=== PATIENT | male | born 1940 | race Caucasian/White ===

== ENCOUNTER → 2018-06-12 | Outpatient (CLI) | payer MEDICARE, BC ==
--- NOTE | 2018-06-12 12:36 | PCVCIMAG ---
EXAM: BILATERAL LOWER EXTREMITY ARTERIAL DUPLEX INDICATION: Peripheral Arterial Disease. Leg pain. Right foot ulcer laterally. FINDINGS: Right Leg: Satisfactory arterial waveforms throughout the common/profunda/superficial femoral, popliteal, anterior tibial, peroneal, and posterior tibial arteries. No flow limiting stenosis seen. Left Leg: Common femoral and profunda femoral arteries are patent. Superficial femoral and popliteal artery are patent. Occlusion throughout the peroneal artery and posterior tibial artery. Anterior tibial artery appears patent. IMPRESSION: No flow limiting stenosis in the right lower extremity. 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 LOC:[id number]
== END | disposition home or self-care (01) ==
LOC: PCVCIMAG 14:49
PROVIDERS: ATTEND Emergency Medicine
DX: L97.519 Non-pressure chronic ulcer of other part of right foot with unspecified severity (principal); I73.9 Peripheral vascular disease, unspecified
CPT/HCPCS: 93925

== ENCOUNTER → 2019-10-15 | Outpatient (CLI) | payer MEDICARE, BC ==
--- NOTE | 2019-10-15 17:13 | PCVCIMAG ---
EXAM: BILATERAL LOWER EXTREMITY ARTERIAL DUPLEX INDICATION: Peripheral Arterial Disease. Leg pain. Nonhealing ulcers. FINDINGS: Right Leg: Common femoral and profunda femoral arteries are patent. Superficial femoral and popliteal artery are patent. Occlusion mid/distal anterior tibial artery and distal peroneal artery. Posterior tibial artery is patent. Left Leg: Common femoral and profunda femoral arteries are patent. Superficial femoral and popliteal artery patent. Occlusion throughout the peroneal and posterior tibial arteries. The anterior tibial artery is patent. 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 Otherwise no flow limiting stenosis in the right lower extremity. Occlusion of the left peroneal and posterior tibial arteries. Otherwise no flow limiting stenosis in the left lower extremity. LOC:[id number]
== END | disposition home or self-care (01) ==
LOC: PCVCIMAG 13:10
PROVIDERS: ATTEND Emergency Medicine
DX: I73.9 Peripheral vascular disease, unspecified (principal); L97.919 Non-pressure chronic ulcer of unspecified part of right lower leg with unspecified severity; L97.828 Non-pressure chronic ulcer of other part of left lower leg with other specified severity
CPT/HCPCS: 93925